=== PATIENT | female | born 1960 | race Caucasian/White ===

== ENCOUNTER 2016-05-03 00:18 | Emergency (ER) | payer OTHER ==
[2016-05-03 01:01] LABS: ABSOLUTE EOSINOPHILS # (AUTO) 0.1 10^3/uL (0.0-0.6); ABSOLUTE LYMPHOCYTES (AUTO) 2.3 10^3/uL (0.5-4.7); ABSOLUTE MONOCYTES (AUTO) 0.4 10^3/uL (0.1-1.4); ABSOLUTE NEUT (AUTO) 3.3 10^3/uL (1.7-8.2); BASOPHILS % (AUTO) 0.5 % (0-2); EOSINOPHILS % (AUTO) 1.1 % (0-6); HEMATOCRIT 39.9 % (36.0-47.0); HEMOGLOBIN 13.1 g/dL (12.0-15.5); HGB HCT DIFFERENCE -0.6; LYMPHOCYTES % (AUTO) 37.4 % (13-45); MEAN CORPUSCULAR HEMOGLOBIN 29.9 pg (27.0-33.4); MEAN CORPUSCULAR HGB CONC 32.8 g/dL (32.0-36.0); MEAN CORPUSCULAR VOLUME 91 fl (80-97); MONOCYTES % (AUTO) 6.7 % (3-13); RED BLOOD COUNT 4.37 10^6/uL (3.72-5.28); RED CELL DISTRIBUTION WIDTH 13.2 % (11.5-14.0); SEGMENTED NEUTROPHILS % (AUTO) 54.3 % (42-78); WHITE BLOOD COUNT 6.1 10^3/uL (4.0-10.5)
[2016-05-03 01:09] LABS: APPEARANCE,URINE CLOUDY; BILIRUBIN,URINE NEGATIVE (NEGATIVE); GLUCOSE, URINE NEGATIVE (NEGATIVE); KETONES,URINE NEGATIVE (NEGATIVE); LEUKOCYTE ESTERASE,URINE LARGE (NEGATIVE); NITRITE,URINE NEGATIVE (NEGATIVE); PROTEIN,URINE NEGATIVE (NEGATIVE); URINE SPECIFIC GRAVITY 1.004; UROBILINOGEN,URINE NEGATIVE mg/dL (<2.0)
--- NOTE | 2016-05-03 01:11 | ER Document Report ---
ED General - General Chief Complaint: Possible Overdose Stated Complaint: POSSIBLE OVERDOSE Notes: Patient is a 55 year old female who presents with complaint of depression and intentional overdose. She says she took 10 Xanax 0.5 mg. Patient said she became upset because her son "doesn't listen to her" and was arrested recently. When I ask her if she did this to kill herself patient is very delayed in responding and eventually answers "I don't think so". Patient is very tearful during the entire conversation. Patient denies taking any other drugs. She denies ever overdose in the past. She denies any alcohol. TRAVEL OUTSIDE OF THE [place] IN LAST 30 DAYS: No - Related Data Allergies/Adverse Reactions: gentamicin [Gentamicin] Allergy (Intermediate, Verified 05/03/16 02:12) Fever acetaminophen [From Percocet] Allergy (Verified 05/03/16 02:12) oxycodone HCl [From Percocet] Allergy (Verified 05/03/16 02:12) itching gentamycin Allergy (Intermediate, Uncoded 05/18/11 02:41) Past Medical History - Social History Smoking Status: Unknown if Ever Smoked Frequency of alcohol use: None Drug Abuse: None Family History: Reviewed & Not Pertinent - Past Medical History Cardiac Medical History: Denies: Hx Coronary Artery Disease - high cholesterol, Hx Heart Attack, Hx Hypertension Pulmonary Medical History: Denies: Hx Asthma, Hx Bronchitis, Hx COPD, Hx Pneumonia Neurological Medical History: Denies: Hx Cerebrovascular Accident, Hx Seizures Musculoskeltal Medical History: Denies Hx Arthritis Past Surgical History: Reports: Hx Abdominal Surgery - KARTHIKEYAN Flap with mesh, Hx Breast Surgery, Hx Hysterectomy, Hx Mastectomy - left with reconstruction, Hx Rectal Surgery - Immunizations Hx Diphtheria, Pertussis, Tetanus Vaccination: Yes Review of Systems - Review of Systems Notes: My Normal Review Basic REVIEW OF SYSTEMS: CONSTITUTIONAL : Denies fever, chills, or sweats. Denies recent illness. EENT: Denies eye, ear, throat, or mouth pain or symptoms. Denies nasal or sinus congestion. RESPIRATORY: Denies cough, cold, or chest congestion. Denies shortness of breath, difficulty breathing, or wheezing. GASTROINTESTINAL: Denies abdominal pain. Denies nausea, vomiting, or diarrhea. Denies constipation. Last BM: MUSCULOSKELETAL: Denies neck or back pain or joint pain or swelling. SKIN: Denies rash or skin lesions. NEUROLOGICAL: Denies altered mental status or loss of consciousness. Denies headache. Denies weakness or paralysis or loss of use of either side. Denies problems with gait or speech. Denies sensory or motor loss. PSYCHIATRIC: Depression. ALL OTHER SYSTEMS REVIEWED AND NEGATIVE. Physical Exam - Vital signs Vitals: BP Pulse Ox 110/57 L 96 05/03/16 00:26 05/03/16 00:26 - Notes Notes: General Appearance: Well nourished, somnolent, cooperative, no acute distress, no obvious discomfort. Very tearful on exam Vitals: reviewed, See vital signs table. Head: no swelling or tenderness to the head Eyes: PERRL, EOMI, Conjuctiva clear Mouth: No decreasd moisture Neck: Supple, no neck tenderness, No thyromegaly Lungs: No wheezing, No rales, No rhonci, No accessory muscle use, good air exchange bilaterally. Heart: Normal rate, Regular rythm, No murmur, no rub Abdomen: Normal BS, soft, No rigidity, No abdominal tenderness, No guarding, no rebound, no abdominal masses, no organomegaly Extremities: strength 5/5 in all extremities, good pulses in all extremities, no swelling or tenderness in the extremities, no edema. Skin: warm, dry, appropriate color, no rash Neuro: speech clear, oriented x 3, normal affect, responds appropriately to questions. Course - Vital Signs Vital signs: Temp Pulse Resp BP Pulse Ox 17 111/62 94 05/03/16 02:03 05/03/16 02:03 05/03/16 01:01 - Laboratory Result Diagrams: 05/03/16 00:45 05/03/16 00:45 Laboratory results interpreted by me: 05/03/16 05/03/16 00:40 00:45 Urine Blood SMALL H Ur Leukocyte Esterase LARGE H Salicylates < 1.0 L Acetaminophen < 10 L - EKG Interpretation by Me Additional EKG results interpreted by me: 05/03/16 01:07 EKG is reviewed and interpreted by me. EKG shows normal sinus rhythm with rate of [address] segment elevation or depression. No ischemic to inversions. MD interval, QRS duration, QTC was are within normal range. Old EKG for comparison is from 02/01/2015. - Transfer of Care Notes: 05/03/16 04:[address] on IVC paperwork being that she is extremely tearful and exam and could not fully tell me with certainty that she was not suicidal. This in conjunction with her intentional overdose is concerning. We'll have psychiatry evaluate her this morning. Her labs showed no acute abnormality other than a urinary tract infection. I've placed on Cipro for this. Patient is medically stable for psychiatric evaluation. Dictation of this chart was performed using voice recognition software; therefore, there may be some unintended grammatical errors. Discharge - Discharge Clinical Impression: Depression Qualifiers: Depression Type: unspecified Qualified Code(s): F32.9 - Major depressive disorder, single episode, unspecified Drug overdose Qualifiers: Encounter type: initial encounter Injury intent: intentional self-harm Qualified Code(s): T50.902A - Poisoning by unspecified drugs, medicaments and biological substances, intentional self-harm, initial encounter Urinary tract infection Qualifiers: Urinary tract infection type: acute cystitis Hematuria presence: without hematuria Qualified Code(s): N30.00 - Acute cystitis without hematuria Condition: Stable Disposition: PSYCH HOSP/UNIT Additional Instructions: URINARY TRACT INFECTION: Your evaluation indicates that you have a urinary tract infection. This is due to germs growing in the bladder. This is a common problem. This infection usually responds quickly to antibiotics. Your antibiotic should be taken exactly as prescribed. Drink plenty of fluids -- three to four quarts a day. Occasionally, a bladder anesthetic will be prescribed to help stop the feeling of urgency until the antibiotic has a chance to clear the infection. This may cause your urine to be dark orange. Certain urine infections require a culture. If the doctor obtained a culture, the results will be back in two days. You should call to see if a change in treatment is needed. A repeat urinalysis after you finish treatment is often recommended. The physician will let you know if further testing is required. Call the doctor if you develop fever, chills, flank pain, inability to urinate, or blood in the urine. ANTIBIOTIC THERAPY: You have been given an antibiotic prescription. It's important that you take all the medication, unless instructed otherwise by your physician. Failure to complete the entire course can result in relapse of your condition. Common side effects of antibiotics include nausea, intestinal cramping, or diarrhea. Women may develop vaginal yeast infections, and babies can get yeast (thrush) in the mouth following the use of antibiotics. Contact your physician if you develop significant side effects from this medication. Allergy to this antibiotic can result in hives, wheezing, faintness, or itching. If symptoms of allergy occur, stop the medication and call the doctor. CIPROFLOXACIN: You have been given an antibacterial agent, ciprofloxacin (Cipro). This medicine is not related to the penicillins, sulfas, cephalosporins, or tetracyclines. It is often given to patients who are allergic to these drugs. It has been chosen for you either because other drugs are not appropriate, or because of the nature of your problem. Cipro should not be taken with antacids, as these can decrease its effectiveness. It can be taken without regard to meals. CIPRO SHOULD NOT BE TAKEN BY CHILDREN, NURSING WOMEN, OR WOMEN. Although Cipro is usually well-tolerated, common side effects can include nausea and diarrhea. Contact your doctor if you experience any unusual symptoms while on this medication, such as joint pain or swelling, shortness of breath, wheezing, faintness, or hives. FOLLOW-UP CARE: If you have been referred to a physician for follow-up care, call the physician s office for an appointment as you were instructed or within the next two days. If you experience worsening or a significant change in your symptoms, notify the physician immediately or return to the Emergency Department at any time for re-evaluation. Please return to ER immediately if your fevers, vomiting, or feel unwell. Please return to ER immediately if you have worsening depression or thoughts of suicide. Prescriptions: Ciprofloxacin HCl [Cipro 500 mg Tablet] 500 mg PO BID #6 tablet
[2016-05-03 01:55] LABS: ALANINE AMINOTRANSFERASE 25 U/L (9-52); ALKALINE PHOSPHATASE 53 U/L (38-126); ANION GAP 11 (5-19); ASPARTATE AMINO TRANSFERASE 26 U/L (14-36); BILIRUBIN,TOTAL 0.5 mg/dL (0.2-1.3); BLOOD UREA NITROGEN 13 mg/dL (7-20); CALCIUM 9.6 mg/dL (8.4-10.2); CARBON DIOXIDE 27 mmol/L (22-30); CHLORIDE 104 mmol/L (98-107); CREATININE RESULT 0.87 mg/dL (0.52-1.25); GLUCOSE 90 mg/dL (75-110); POTASSIUM 4.1 mmol/L (3.6-5.0); SODIUM 141.8 mmol/L (137-145); TOTAL PROTEIN 6.7 g/dL (6.3-8.2)
[2016-05-03 01:56] LABS: ALCOHOL < 10 mg/dL (NONE DETECTED)
[2016-05-03 02:10] LABS: URINE BARBITURATES SCREEN NEGATIVE; URINE METHADONE SCREEN NEGATIVE; URINE PHENCYCLIDINE SCREEN NEGATIVE
[2016-05-03] MEDS ORDERED: CIPROFLOXACIN HCL 500 MG TABLET PO ONE (02:13)
--- NOTE | 2016-05-03 08:17 | EKG REPORT ---
SEVERITY:- NORMAL ECG - SINUS RHYTHM : Confirmed by: Uli Chapman MD 03-May-2016 08:17:22
[2016-05-03] MEDS ORDERED: CIPROFLOXACIN HCL 500 MG TABLET PO SCH (10:00)
[2016-05-03] MEDS ORDERED: CEFTRIAXONE 1 GM/D5W RTU 50 ML IV ONE (10:03)
[2016-05-03] MEDS ORDERED: NORMAL SALINE 1000 ML 1,000 ML IV ONE (10:03)
--- NOTE | 2016-05-03 10:59 | ER Document Report ---
Doctor's Note Notes: 05/03/16 10:57 Rounds: Chart reviewed and patient interviewed. Patient is being evaluated after having taken an excess amount of Xanax, patient says about 7 tablets, last night. Patient says she has suicidal thoughts. Suffers from depression and posttraumatic stress disorder. Vital signs have been normal except for her blood pressures which are running low, 70/59, 80/58, 95/73. All of her other labs are normal and there is no apparent loss of blood or anything to account for those low values so I suspect they're related to the Xanax that she took. She does not have any blood pressure problems and is on no blood pressure medicine. She also has a urinalysis that looks suspicious for a UTI and has been started on by mouth Cipro, but I do not think the patient is septic and I doubt that that UTI has anything to do with her blood pressure. She is not tachycardic and she is not febrile and has a normal WBC. I'm running a liter of normal saline in wide open and also giving her a gram of Rocephin just to be sure that her UTI is covered since Cipro as a relatively lower success percentage against common UTI bacteria in this hospital. Patient looks and acts as if she feels well. Patient appears to be medically stable for transfer or discharge. Awaiting mental health assessment. Once the patient receives the Rocephin and the liter of fluid, I believe she will be medically clear for transfer or discharge. Julia Bro M.D.
[2016-05-03 13:24] VITALS: BP 119/72
--- NOTE | 2016-05-03 13:28 | PSYCHOLOGICAL NOTE ---
Psych Note - Psych Note Psych Note: Patient is a 55 year old female who presented overnight with overdose of possibly 15 Xanax. Patient was reportedly upset due to an argument with her son , who was recently arrested. Patient was placed under IVC by ED MD due to concerns behind intent, which she was noted as not being able to commit to her intent behind taking all of the pills. Patient was additionally noted to be sad with tearful affect. Clinician entered the room and advised patient that per the IVC process, her referral packet was sent out this morning around 0900 and she was accepted to [facility] for acute psychiatric placement. Patient attempted to state this was a misunderstanding and also demanded the MD be contacted. Advised patient that the MD would not be contacted (due to his overnight schedule), and that once a patient is accepted, the disposition and finalized. Patient encouraged that once she arrives at [facility], the provider and clinical team would evaluate and create a plan of care. Patient stated she simply forgot she took the extra pills, and then took more. Note,patient was overheard expressing her discontent with this clinician and overall process after she was advised of her disposition. Patient is recommended to continue under IVC and follow through with placement at [facility]. Patient will transfer there today via [facility]. I consulted with Dr. Wilburn in regards to the care and management of this patient. ED MD is in agreement with disposition and recommendations.
== END 2016-05-03 14:24 ==
LOC: ER 00:18
DX: T42.4X2A Poisoning by benzodiazepines, intentional self-harm, initial encounter (principal); F32.9 Major depressive disorder, single episode, unspecified; N30.00 Acute cystitis without hematuria; Z88.1 Allergy status to other antibiotic agents; Z88.6 Allergy status to analgesic agent; Z88.5 Allergy status to narcotic agent
CPT/HCPCS: 93005; 99285; 96361; 96365; 36415; 87086; 80307 ×4; 85025; 80053; 81001; 93010; J7030; J0696

== ENCOUNTER 2016-05-28 23:59 | Emergency (ER) | payer OTHER ==
[2016-05-29] MEDS ORDERED: MORPHINE SULFATE 10 MG/ML INJ IV ONE (00:57)
[2016-05-29] MEDS ORDERED: ONDANSETRON HCL INJ/PF 4 MG/2 ML SDV IV ONE ×2 (00:58→05:27)
[2016-05-29] MEDS ORDERED: NORMAL SALINE 1000 ML 1,000 ML IV ONE (00:58)
--- NOTE | 2016-05-29 01:00 | ER Document Report ---
ED GI/ - General Chief Complaint: Abdominal Distention Stated Complaint: ABDOMINAL PAIN Notes: Patient is 55-year-old female that comes emergency department for chief complaint of severe abdominal pain that began just prior to arrival, patient states she has had KARTHIKEYAN procedure for breast cancer, denies other surgeries of the abdomen. She denies history of bowel obstruction. She denies vomiting, states she is nauseated, states she had a normal bowel movement earlier today. Patient denies fever. Past medical history of anxiety, depression, PTSD. TRAVEL OUTSIDE OF THE [place] IN LAST 30 DAYS: No - Related Data Allergies/Adverse Reactions: gentamicin [Gentamicin] Allergy (Intermediate, Verified 05/03/16 02:12) Fever acetaminophen [From Percocet] Allergy (Verified 05/03/16 02:12) oxycodone HCl [From Percocet] Allergy (Verified 05/03/16 02:12) itching gentamycin Allergy (Intermediate, Uncoded 05/18/11 02:41) Past Medical History - General Information source: Patient - Social History Smoking Status: Never Smoker Frequency of alcohol use: None Drug Abuse: None Lives with: Family Family History: Reviewed & Not Pertinent Patient has suicidal ideation: No Patient has homicidal ideation: No - Past Medical History Cardiac Medical History: Denies: Hx Coronary Artery Disease - high cholesterol, Hx Heart Attack, Hx Hypertension Pulmonary Medical History: Denies: Hx Asthma, Hx Bronchitis, Hx COPD, Hx Pneumonia Neurological Medical History: Denies: Hx Cerebrovascular Accident, Hx Seizures Renal/ Medical History: Denies: Hx Peritoneal Dialysis Musculoskeltal Medical History: Denies Hx Arthritis Psychiatric Medical History: Reports: Hx Anxiety, Hx Depression, Hx Post Traumatic Stress Disorder Past Surgical History: Reports: Hx Abdominal Surgery - KARTHIKEYAN Flap with mesh, Hx Breast Surgery, Hx Hysterectomy, Hx Mastectomy - left with reconstruction, Hx Rectal Surgery - Immunizations Hx Diphtheria, Pertussis, Tetanus Vaccination: Yes Review of Systems - Review of Systems Constitutional: No symptoms reported EENT: No symptoms reported Cardiovascular: No symptoms reported Respiratory: No symptoms reported Gastrointestinal: See HPI Genitourinary: No symptoms reported Female Genitourinary: No symptoms reported Musculoskeletal: No symptoms reported Skin: No symptoms reported Hematologic/Lymphatic: No symptoms reported Neurological/Psychological: No symptoms reported Physical Exam - Vital signs Vitals: Temp Pulse Resp BP Pulse Ox 98.0 F 77 20 120/72 95 05/29/16 04:39 05/29/16 04:39 05/29/16 04:39 05/29/16 04:39 05/29/16 04:39 Interpretation: Normal - General General appearance: Anxious In distress: Mild - Patient appears uncomfortable but does not appear to be in severe distress - HEENT Head: Normocephalic, Atraumatic Eyes: Normal Conjunctiva: Normal Extraocular movements intact: Yes Eyelashes: Normal Pupils: PERRL Nasal: Normal Mouth/Lips: Normal Mucous membranes: Normal Pharynx: Normal Neck: Normal - Respiratory Respiratory status: No respiratory distress Chest status: Nontender Breath sounds: Normal Chest palpation: Normal - Cardiovascular Rhythm: Regular. No: Tachycardia Heart sounds: Normal auscultation, S1 appreciated, S2 appreciated Murmur: No - Abdominal Inspection: Other - Large horizontal lower abdominal scar Distension: No distension Bowel sounds: Normal Tenderness: Tender - There is tenderness generally over the abdomen, no specific areas of tenderness or guarding Organomegaly: No organomegaly - Back Back: Normal, Nontender - Extremities General upper extremity: Normal inspection, Nontender, Normal ROM, Normal strength General lower extremity: Normal inspection, Nontender, Normal ROM, Normal strength - Neurological Neuro grossly intact: Yes Cognition: Normal Orientation: AAOx4 Redford Coma Scale Eye Opening: Spontaneous Angelo Coma Scale Verbal: Oriented Redford Coma Scale Motor: Obeys Commands Redford Coma Scale Total: 15 Speech: Normal Cranial nerves: Normal Cerebellar coordination: Normal Motor strength normal: LUE, RUE, LLE, RLE 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 Because of sharp pain, concern for possible obstruction or even perforation. Acute abdominal series unremarkable, laboratory workup unremarkable. CT scan performed but shows no acute abnormalities. Small umbilical hernia containing fat. No evidence of significant hernia or incarceration on exam. Discussed with Dr. Fleming per [facility] guidelines. Discussed results with patient, patient will be given symptomatic management, refer to gastroenterology, discussed return precautions. Patient states satisfaction and agreement. - Vital Signs Vital signs: Temp Pulse Resp BP Pulse Ox 97.9 F 62 18 102/66 95 05/29/16 06:52 05/29/16 06:52 05/29/16 06:52 05/29/16 06:52 05/29/16 06:52 - Laboratory Result Diagrams: 05/29/16 01:20 05/29/16 01:20 Laboratory results interpreted by me: 05/29/16 05/29/16 01:10 01:20 Est GFR (Non-Af Amer) 59 L AST 38 H Ur Leukocyte Esterase TRACE H Discharge - Discharge Clinical Impression: Abdominal pain Qualifiers: Abdominal location: generalized Qualified Code(s): R10.84 - Generalized abdominal pain Vomiting Qualifiers: Vomiting type: unspecified Vomiting Intractability: non-intractable Nausea presence: with nausea Qualified Code(s): R11.2 - Nausea with vomiting, unspecified Condition: Stable Disposition: HOME, SELF-CARE Additional Instructions: CAT scan shows no acute abnormality, there is a small umbilical hernia. At this time I'm uncertain of the exact cause of her pain, clear fluid diet today, take the nausea medication if needed, take the pain medication only if needed. Follow-up with gastroenterology referral. Return to the emergency department for any concerning or worsening symptoms including fever, uncontrolled vomiting, bloody movements, severe abdominal pain , etc. Prescriptions: Oxycodone HCl/Acetaminophen [Percocet 5-325 mg Tablet] 1 - 2 tab PO Q4H PRN #12 tablet PRN Reason: Promethazine HCl [Phenergan 25 mg Tablet] 1 - 2 tab PO Q6H PRN #20 tablet PRN Reason: Referrals: GENARO DOBSON MD [ACTIVE STAFF] - Follow up as needed MARCELA CROW MD [ACTIVE STAFF] - Follow up as needed
[2016-05-29 01:44] LABS: APPEARANCE,URINE CLEAR; BILIRUBIN,URINE NEGATIVE (NEGATIVE); GLUCOSE, URINE NEGATIVE (NEGATIVE); KETONES,URINE NEGATIVE (NEGATIVE); LEUKOCYTE ESTERASE,URINE TRACE (NEGATIVE); NITRITE,URINE NEGATIVE (NEGATIVE); PROTEIN,URINE NEGATIVE (NEGATIVE); UROBILINOGEN,URINE NEGATIVE mg/dL (<2.0)
[2016-05-29 01:49] LABS: ABSOLUTE BASOPHILS # (AUTO) 0.1 10^3/uL (0.0-0.2); ABSOLUTE EOSINOPHILS # (AUTO) 0.1 10^3/uL (0.0-0.6); ABSOLUTE LYMPHOCYTES (AUTO) 2.7 10^3/uL (0.5-4.7); ABSOLUTE MONOCYTES (AUTO) 0.4 10^3/uL (0.1-1.4); ABSOLUTE NEUT (AUTO) 3.3 10^3/uL (1.7-8.2); BASOPHILS % (AUTO) 0.9 % (0-2); EOSINOPHILS % (AUTO) 1.2 % (0-6); HEMATOCRIT 38.4 % (36.0-47.0); HEMOGLOBIN 12.9 g/dL (12.0-15.5); HGB HCT DIFFERENCE 0.3; LYMPHOCYTES % (AUTO) 40.7 % (13-45); MEAN CORPUSCULAR HEMOGLOBIN 30.3 pg (27.0-33.4); MEAN CORPUSCULAR HGB CONC 33.7 g/dL (32.0-36.0); MEAN CORPUSCULAR VOLUME 90 fl (80-97); MONOCYTES % (AUTO) 6.9 % (3-13); RED BLOOD COUNT 4.26 10^6/uL (3.72-5.28); RED CELL DISTRIBUTION WIDTH 13.4 % (11.5-14.0); SEGMENTED NEUTROPHILS % (AUTO) 50.3 % (42-78); WHITE BLOOD COUNT 6.5 10^3/uL (4.0-10.5)
[2016-05-29 01:50] LABS: URINE SPECIFIC GRAVITY 1.005
[2016-05-29 01:52] LABS: ALANINE AMINOTRANSFERASE 33 U/L (9-52); ALBUMIN 3.9 g/dL (3.5-5.0); ALKALINE PHOSPHATASE 59 U/L (38-126); ANION GAP 8 (5-19); ASPARTATE AMINO TRANSFERASE 38 U/L (14-36); BILIRUBIN,TOTAL 0.5 mg/dL (0.2-1.3); BLOOD UREA NITROGEN 15 mg/dL (7-20); CALCIUM 9.3 mg/dL (8.4-10.2); CARBON DIOXIDE 27 mmol/L (22-30); CHLORIDE 106 mmol/L (98-107); CREATININE RESULT 0.97 mg/dL (0.52-1.25); GLUCOSE 89 mg/dL (75-110); LIPASE 215.4 U/L (23-300); TOTAL PROTEIN 7.3 g/dL (6.3-8.2)
[2016-05-29] MEDS ORDERED: HYDROMORPHONE HCL INJ/PF 2 MG/ML AMPULE IV ONE ×2 (02:28→05:42)
[2016-05-29 06:55] VITALS: BP 102/66
== END 2016-05-29 06:56 | disposition home or self-care (01) ==
LOC: ER 23:59
DX: R10.84 Generalized abdominal pain (principal); R11.2 Nausea with vomiting, unspecified; R14.0 Abdominal distension (gaseous)
CPT/HCPCS: 96376; 99284; 96374; 96375; 36415; 83690; 85025; 80053; 81001; 74022; 74177; J2270; J1170; J2405

== ENCOUNTER 2016-11-28 23:35 | Emergency (ER) | payer OTHER ==
--- NOTE | 2016-11-29 00:02 | ER Document Report ---
ED General - General Mode of Arrival: Ambulatory Information source: Patient TRAVEL OUTSIDE OF THE [place] IN LAST 30 DAYS: No - HPI Associated symptoms: Fever - General Chief Complaint: Post Surgical Pain Stated Complaint: UNDERARM PAIN Time Seen by Provider: 11/29/16 00:01 Notes: Patient is a 56 year old female presenting to the ED for concerns relating to her recent breast implant/augmentation.. Patient has a history of breast cancer and is in remission. Patient has had a mastectomy to her left breast. Patient states she had surgery to her right breast recently and she had some sutures removed last week by Dr. Isaac. Patient states she has had fevers of 101 F over the past few days and she thought her right breast was warm to touch. Patient states she had a reaction to previous sutures and became septic. Patient also previously had MRSA. Patient is concerned about this today along with an area that is painful on her incision line. Patient's surgeon was Dr. Isaac and patient states he is on vacation this week. (RUSS NUÑEZ) - Related Data Allergies/Adverse Reactions: gentamicin [Gentamicin] Allergy (Intermediate, Verified 05/03/16 02:12) Fever acetaminophen [From Percocet] Allergy (Verified 05/03/16 02:12) oxycodone HCl [From Percocet] Allergy (Verified 05/03/16 02:12) itching gentamycin Allergy (Intermediate, Uncoded 05/18/11 02:41) Past Medical History - General Information source: Patient - Social History Smoking Status: Never Smoker Cigarette use (# per day): No Chew tobacco use (# tins/day): No Smoking Education Provided: No Frequency of alcohol use: None Drug Abuse: None Family History: None Patient has suicidal ideation: No Patient has homicidal ideation: No Psychiatric Medical History: Reports: Hx Anxiety, Hx Depression, Hx Post Traumatic Stress Disorder Past Surgical History: Reports: Hx Abdominal Surgery - KARTHIKEYAN Flap with mesh, Hx Breast Surgery - augmentation/lift to right breast, Hx Hysterectomy, Hx Mastectomy - left with reconstruction, Hx Rectal Surgery - Immunizations Hx Diphtheria, Pertussis, Tetanus Vaccination: Yes Review of Systems - Review of Systems Constitutional: See HPI, Fever EENT: No symptoms reported Cardiovascular: No symptoms reported Respiratory: No symptoms reported Gastrointestinal: No symptoms reported Genitourinary: No symptoms reported Female Genitourinary: No symptoms reported Musculoskeletal: No symptoms reported Skin: See HPI Hematologic/Lymphatic: No symptoms reported Neurological/Psychological: No symptoms reported -: Yes All other systems reviewed and negative Physical Exam - Vital signs Interpretation: Normal - Vital signs Vitals: Temp Pulse Resp BP Pulse Ox 98.6 F 71 20 135/98 H 98 11/28/16 23:41 11/28/16 23:41 11/28/16 23:41 11/28/16 23:41 11/28/16 23:41 - Notes Notes: GENERAL: Alert, interacts well. No acute distress. HEAD: Normocephalic, atraumatic. EYES: Appear normal. Pupils equal, round, and reactive to light. ENT: Moist mucus membranes, tongue midline. NECK: Full range of motion. Supple. Trachea midline. LUNGS: Clear to auscultation bilaterally, no wheezes, rales, or rhonchi. No respiratory distress. Healed incisions to both the left and right breast due to previous surgeries. No sign of infection, no active drainage or bleeding. Incisions are well appearing. HEART: Regular rate and rhythm. No murmurs, gallops, or rubs. ABDOMEN: Soft, non-tender. Non-distended. Normal bowel sounds. EXTREMITIES: Moves all 4 extremities spontaneously. Normal strength. No edema. NEUROLOGICAL: Alert and oriented x3. Normal speech. No focal neurological deficits. GSC 15. PSYCH: Normal affect, normal mood. SKIN: Warm, dry, normal turgor. No rashes or lesions noted. (RUSS NUÑEZ) Course - Consults Dr. Isaac-surgeon/excavation laborer Time consulted: 00:31 - Vital Signs Vital signs: Temp Pulse Resp BP Pulse Ox 98.6 F 88 18 128/78 H 98 11/28/16 23:41 11/29/16 01:37 11/29/16 01:37 11/29/16 01:37 11/29/16 01:37 - Consults Dr. Isaac-surgeon/excavation laborer Reason for consultation: 11/29/16 00:31 Contacted the excavation laborer surgeon for Dr. Isaac, they will be paged and call back. 11/29/16 01:[address] Palomo to discussed patient; he will see the patient in the office. (RUSS NUÑEZ) Discharge - Discharge Clinical Impression: post op incisional pain Condition: Stable Disposition: HOME, SELF-CARE Additional Instructions: Been seen and evaluated for concerns about your post breast augmentation incision. There is no area redness and I can palpate. I do not see any signs of sepsis requiring immediate admission to the hospital for IV antibiotics. I have spoken with the Dr. Dayana Scott asked that the on-call for Dr. Nigel Bai go ahead and start her on Keflex he said he will see you in the office she can come in anytime tomorrow he will be there all day Prescriptions: Cephalexin Monohydrate [Keflex 500 mg Capsule] 500 mg PO QID #28 capsule Scribe Attestation: 11/29/16 01:23 I personally performed the services described in the documentation reviewed the documentation recorded by my scribe in my presence and it accurately and completely records my words and actions (LYNN FERNANDEZ) Scribe Documentation - Scribe Written by Scribe:: Anita Cid 1:04 11/29/2016 acting as scribe for :: Garcia
[2016-11-29] MEDS ORDERED: CEPHALEXIN 500 MG CAPSULE PO ONE (01:06)
[2016-11-29 01:38] VITALS: BP 128/78
== END 2016-11-29 01:37 | disposition home or self-care (01) ==
LOC: ER 23:35
DX: G89.18 Other acute postprocedural pain (principal); R50.9 Fever, unspecified; Z85.3 Personal history of malignant neoplasm of breast; Z90.12 Acquired absence of left breast and nipple; Z86.14 Personal history of Methicillin resistant Staphylococcus aureus infection; Z88.6 Allergy status to analgesic agent
CPT/HCPCS: 99283